=== PATIENT | male | born 1985 | race African-American/Black ===

== ENCOUNTER 2017-09-27 16:02 | Emergency (ER) | payer MEDICAID ==
[2017-09-27 16:58] VITALS: BP 138/76; PULSE 85; RESP 16; TEMP 98.7; O2SAT 99
--- NOTE | 2017-09-27 18:49 | PD ---
HPI Chief Complaint: ENT Complaint Time Seen by Provider: 18:39 Travel History International Travel<30 days: No Contact w/Intl Traveler<30days: No Traveled to known affect area: No History of Present Illness HPI 32y male presents emergency department complaining of cough, congestion, right ear discomfort and fullness, throat discomfort and right nostril discharge for approximately 1 week. Says his entire right parasinuses feel full and swollen. Patient states that he has had a productive cough with green green sputum. Denies chest pain, shortness of breath. Says he has had a difficult time falling asleep as a result of his symptoms. Says he has had a subjective fever but has not taken his temperature. He has not taken any vijz-iak-hhzspuf medications. Has a history of seasonal allergies. He denies chronic medical issues or medication use. Says he has a history of childhood asthma which resolved when he was 13 years old. PFSH Past Medical History Medical History: Denies Significant Hx Tetanus Vaccination: < 5 Years Past Surgical History Surgical History: No Previous Surgery Social History Alcohol Use: No Tobacco Use: No Substance Use: No Allergies-Medications (Allergen,Severity, Reaction): Coded Allergies: No Known Allergies (Unverified , 09/27/17) Reported Meds & Prescriptions Reported Meds & Active Scripts Active Bactrim DS (Sulfamethoxazole-Trimethoprim) 800-160 Mg Tab 1 Tab PO BID Prednisone 5 Mg Tab 5 Mg PO DAILY 7 Days Review of Systems Except as stated in HPI: all other systems reviewed are Neg Physical Exam Narrative GENERAL: Well developed, well-nourished in no apparent distress SKIN: Focused skin assessment warm/dry. HEAD: Atraumatic. Normocephalic. EYES: Pupils equal and round. No scleral icterus. No injection or drainage. ENT: No nasal bleeding or discharge. Mucous membranes pink and moist. Mild tenderness palpation to the right maxillary sinus region. Throat mildly erythematous without tonsillar hypertrophy or exudate NECK: Trachea midline. No JVD. No lymphadenopathy CARDIOVASCULAR: Regular rate and rhythm. No murmur appreciated. RESPIRATORY: No accessory muscle use. Clear to auscultation. Breath sounds equal bilaterally. No wheezing, rales or rhonchi GASTROINTESTINAL: Abdomen soft, non-tender, nondistended. Hepatic and splenic margins not palpable. No CVA tenderness MUSCULOSKELETAL: No obvious deformities. No clubbing. No cyanosis. No edema. NEUROLOGICAL: Awake and alert. No obvious cranial nerve deficits. Motor grossly within normal limits. Normal speech. PSYCHIATRIC: Appropriate mood and affect; insight and judgment normal. Data Data Last Documented VS Vital Signs Date Time Temp Pulse Resp B/P (MAP) Pulse Ox O2 Delivery O2 Flow Rate FiO2 09/27/17 16:58 98.7 85 16 138/76 (96) 99 Orders Orders Prednisone (Deltasone) (09/27/17 19:00) Ed Discharge Order (09/27/17 18:59) [facility] Medical Decision Making Medical Screen Exam Complete: Yes Emergency Medical Condition: Yes Differential Diagnosis Allergic rhinitis, upper respiratory infection, sinusitis, bronchitis Narrative Course 32-year-old male presents emergency department complaining of nasal congestion, cough, and right ear fullness. Patient denies sick contacts but states he does have chronic seasonal allergies. Patient does not have a primary care physician. Vital signs are stable. Prednisone administered emergency department. Antibiotics for outpatient use. Advised that he should not use them if the symptoms improved with prednisone. I am prescribing these antibiotics because patient does not have a primary care physician and I am concerned about follow-up. Prednisone prescribed as well. Consider uyvs-gho-qrelqim antihistamines or nasal steroids for symptoms. Patient advised to follow-up with [facility]. Return to the emergency room for worsening or persistent symptoms. Diagnosis Primary Impression: Allergic rhinitis Qualified Codes: J30.1 - Allergic rhinitis due to pollen Additional Impression: Sinusitis Qualified Codes: J01.00 - Acute maxillary sinusitis, unspecified Referrals: [facility] Additional Instructions: You have been prescribed antibiotics as you do not have a primary care physician. If your symptoms do not improve, persist or worsen start your antibiotics. Ensure adequate fluid intake and proper nutrition. Consider taking daily Zyrtec, Claritin, or Jenn per package instructions for allergy symptoms. Consider using tniq-vrm-onrbwge Flonase or Nasonex per package instructions for your nasal congestion. Scripts Sulfamethoxazole-Trimethoprim (Bactrim DS) 800-160 Mg Tab 1 TAB PO BID for Infection, #14 TAB 0 Refills Prov: Juan M High MD 09/27/17 Prednisone (Prednisone) 5 Mg Tab 5 MG PO DAILY for 7 Days, #7 TAB 0 Refills Prov: Juan M High MD 09/27/17 Disposition: 01 DISCHARGE HOME Condition: Stable Deneen Orellana Sep 27, 2017 18:49
[2017-09-27] MEDS ORDERED: BACT800T5 PO (18:54)
[2017-09-27] MEDS ORDERED: PRED5TAB PO (18:54)
[2017-09-27] MEDS ORDERED: predniSONE 20 MG TAB PO ONE (19:00)
== END 2017-09-27 19:09 | disposition home or self-care (01) ==
LOC: NED 16:02 → NEPA 19:09
DX: J30.1 Allergic rhinitis due to pollen (principal); J01.00 Acute maxillary sinusitis, unspecified
CPT/HCPCS: 99283; J7512